=== PATIENT | male | born 1980 | race Caucasian/White ===

== ENCOUNTER 2021-09-29 15:36 | Emergency (ER) | payer BC, OTHER, SELFPAY ==
[2021-09-29 15:37] VITALS: BP 145/85; PULSE 133; RESP 16; TEMP 36.9; O2SAT 98; BMI 36.1
--- NOTE | 2021-09-29 15:49 | [facility].EDGENADL ---
ED Disposition Clinical Impression: Non-intractable vomiting, Hyperglycemia Diarrhea Qualifiers: Diarrhea type: unspecified type Qualified Code(s): R19.7 - Diarrhea, unspecified Disposition: Home, Self-Care Condition on Discharge: Good Instructions: Diarrhea, DI for Hyperglycemia -- Adult, DI for Vomiting -- Adult, Nausea and Vomiting-Adult Additional Instructions: follow up pcp, return for worse or any concerns Prescriptions: Ondansetron [Zofran 4mg ODT] 4 mg PO Q8 PRN #30 tab PRN Reason: Nausea And Vomiting Transmission Status: Received by [id number] Referrals: Provider,MD Alisson [Primary Care Provider] - Tyrel Davison MD [Staff Physician] - Time of Disposition: 17:27 - Critical Care Critical Care Time: No Attestation: On , the high probability of a clinically significant, sudden or life threatening deterioration of the following system(s) required my full and direct attention, intervention and personal management. The time I documented below is in addition to time spent performing reported procedures but includes the following listed in this critical care notation. Medical Decision Making - Ric Inquiry Pt receiving controlled substance: No Vital Signs: 09/29/21 15:37 09/29/21 16:30 Temperature 98.5 F Temperature Source Oral Pulse Rate 109 H Pulse Rate [Radial] 133 H Respiratory Rate 16 Blood Pressure [Right Arm] 145/85 H Blood Pressure Mean [Right Arm] 105 Blood Pressure Source [Right Arm] Manual Cuff/ Palpation Blood Pressure Position [Right Arm] Sitting 02 Sat by Pulse Oximetry 98 95 Oxygen Delivery Method Room Air Room Air - Lab Data Lab Results 09/29/21 15:57: SARS-CoV-2 (PCR) Not detected, Influenza A Untype (PCR) Not detected, Influenza Type B (PCR) Not detected 09/29/21 16:00: WBC 11.1 H, RBC 6.17, Hgb 18.2 H, Hct 53.4 H, MCV 86.5, MCH 29.4, MCHC 34.0, RDW 13.0, Plt Count 228, MPV 8.5, Neut % (Auto) 59.1, Lymph % (Auto) 30.4, Cochran % (Auto) 5.4, Eos % (Auto) 2.2, Baso % (Auto) 2.9 H, Neut # (Auto) 6.6, Lymph # (Auto) 3.4, Cochran # (Auto) 0.6, Eos # (Auto) 0.2, Baso # (Auto) 0.3 H 09/29/21 16:00: Sodium 134 L, Potassium 3.8, Chloride 99, Carbon Dioxide 25, Anion Gap 13.8, BUN 21 H, Creatinine 1.10, Estimated Creat Clear 138, Estimated GFR 73, Est GFR ( Amer) 89, Glucose 369 H, Calcium 9.1, Total Bilirubin 0.8, AST 92 H, ALT 115 H, Alkaline Phosphatase 77, Total Protein 7.9, Albumin 4.6, Globulin 3.3 H, Albumin/Globulin Ratio 1.4 Result diagrams: 09/29/21 16:00 09/29/21 16:00 Orders (Tests/Meds): ED MEDICATIONS Generic Name Dose Route Start Last Admin Trade Name Freq PRN Reason Stop Dose Admin Sodium Chloride 1,000 mls @ 999 mls/hr 09/29/21 16:30 09/29/21 17:01 Sod Chlor 0.9% 1000ml Bag IV 09/29/21 17:30 999 mls/hr .Q1H1M MEGAN Administration Discontinued Medications Generic Name Dose Route Start Last Admin Trade Name Freq PRN Reason Stop Dose Admin Sodium Chloride 1,000 mls @ 999 mls/hr 09/29/21 16:00 09/29/21 16:01 Sod Chlor 0.9% 1000ml Bag IV 09/29/21 17:00 999 mls/hr .Q1H1M MEGAN Administration Metoclopramide HCl 10 mg 09/29/21 15:47 09/29/21 16:01 Metoclopramide Hcl 10mg/2ml Vial IVP 09/29/21 15:48 10 mg ONCE ONE Administration Ondansetron HCl 8 mg 09/29/21 15:47 09/29/21 16:01 Ondansetron 4mg/2ml Vial IV 09/29/21 15:48 8 mg ONCE ONE Administration Medical Decision Narrative: reeval, appears well, abd soft, char po, vss, hr 90, afebrile, no sig sepsis risk, says he feels fine, ok with plan to f/u pcp General Adult HPI - General Stated complaint: cough,JOAQUIN,Weakness,V&D,Body aches Time Seen by Provider: 09/29/21 15:49 Mode of Arrival: Ambulatory Source of Information: Patient Limitations: No Limitations - History of Present Illness HPI narrative: n/v/d, cough, chills , 3 days, denies abd pain Onset (ago): day(s) Radiation: non-radiation Severity: moderate Consistency
[2021-09-29 16:10] LABS: Coronavirus 19, PCR Not Detected (NotDetected); Influenza A, PCR Not Detected (NotDetected); Influenza B, PCR Not Detected (NotDetected)
[2021-09-29 16:16] LABS: Basophils # 0.3 K/mm3 (0-0.2); Basophils % 2.9 % (0.1-2.0); Eosinophils # 0.2 K/mm3 (0.0-0.4); Eosinophils % 2.2 % (0.1-12.0); Hematocrit 53.4 % (42.0-52.0); Lymphocytes # 3.4 K/mm3 (0.7-4.5); Lymphocytes % 30.4 % (10-50); Mean Corpuscular Hemoglobin 29.4 pg (27.0-31.2); Mean Corpuscular Volume 86.5 fl (80-94); Mean Platelet Volume 8.5 fl (7.4-10.4); Monocytes # 0.6 K/mm3 (0.1-1.0); Monocytes % 5.4 % (1.7-9.3); Neutrophils # 6.6 K/mm3 (1.8-7.8); Neutrophils % 59.1 % (37.0-80.0); Platelet Count 228 K/mm3 (142-424); Red Blood Count 6.17 M/mm3 (4.60-6.20); White Blood Count 11.1 K/mm3 (4.8-10.8)
[2021-09-29 16:25] LABS: Hemoglobin 18.2 g/dL (14.1-18.0)
[2021-09-29 16:26] LABS: Alanine Aminotransferase 115 U/L (12-78); Albumin Level 4.6 g/dl (3.5-5.0); Albumin/Globulin Ratio 1.4 (1.1-1.8); Alkaline Phosphatase 77 U/L (38-126); Anion Gap 13.8 mEq/L (5-15); Aspartate Amino Transferase 92 U/L (17-59); Bilirubin,Total 0.8 mg/dl (0.2-1.3); Blood Urea Nitrogen 21 mg/dl (9-20); Calcium 9.1 mg/dl (8.4-10.2); Carbon Dioxide 25 mmol/L (22.0-30.0); Chloride 99 mmol/L (98-107); Creatinine Clearance Estimated 138 mL/min (50-200); Estimated Glomerular Filt Rate 73 ml/min (>60); GFR (African American) 89 ML/MIN (>60); Globulin 3.3 g/dL (1.3-3.2); Glucose 369 mg/dl (74-100); Potassium 3.8 mmoL/L (3.5-5.1); Sodium 134 mmol/L (136-145); Total Protein,Serum 7.9 g/dl (6.3-8.2)
[2021-09-29 16:30] VITALS: PULSE 109; O2SAT 95
[2021-09-29 17:37] VITALS: BP 144/78; PULSE 93; O2SAT 97
[2021-09-29 17:49] VITALS: BP 142/78; PULSE 78; RESP 16; TEMP 36.6; O2SAT 98
== END 2021-09-29 17:51 | disposition home or self-care (01) ==
PROVIDERS: Emergency Provider Emergency Medicine
DX: R11.10 Vomiting, unspecified (principal); R73.9 Hyperglycemia, unspecified
CPT/HCPCS: 80053; 85025; 96365; 96367; 96375; 99282; C9803; J2405; U0003; U0005